=== PATIENT | male | born 2005 | race Caucasian/White ===

== ENCOUNTER 2023-08-08 23:50 | Emergency (ER) | payer OTHER, SELFPAY ==
[2023-08-08 23:55] VITALS: BP 152/83; PULSE 121; RESP 25; TEMP 37; O2SAT 100
--- NOTE | 2023-08-08 23:58 | ED.ALLEREA ---
HPI - Allergic Reaction General Chief complaint: Allergic Reaction <Serafin iRchmond APRN - Last Filed: 08/09/23 02:29> Stated complaint: allegic reaction, chest tightness, peanut allergy <Serafin Richmond APRN - Last Filed: 08/09/23 02:29> Time Seen by Provider: 08/08/23 23:55 <Serafin Richmond APRN - Last Filed: 08/09/23 02:29> Source: patient <Serafin Richmond APRN - Last Filed: 08/09/23 02:29> Mode of arrival: ambulatory <Serafin Richmond APRN - Last Filed: 08/09/23 02:29> Limitations: no limitations <Serafin Richmond APRN - Last Filed: 08/09/23 02:29> History of Present Illness HPI narrative: Liu is a 18-year-old male patient presenting to the emergency room for a possible allergic reaction. He reports he does have an allergy to nuts and had exposure tonight. Complaints of throat tightness and chest tightness. Did give himself a epi injection prior to arrival to the ER- 15 minutes prior to arrival. <Serafin Richmond APRN - Last Filed: 08/09/23 02:29> Related Data Home medications: Home Medications Medication Instructions Recorded Confirmed cetirizine 10 mg tablet (All Day 10 mg PO DAILY 09/05/19 08/28/20 Allergy (cetirizine)) <Serafin Richmond APRN - Last Filed: 08/09/23 02:29> Allergies/adverse reactions: Allergies Allergy/AdvReac Type Severity Reaction Status Date / Time peanut Allergy Unknown unhknown Verified 08/27/20 15:00 tree nut Allergy Unknown unknown Verified 08/27/20 15:00 <Serafin Richmond APRN - Last Filed: 08/09/23 02:29> Review of Systems Review of Systems: Pertinent positives per HPI. Patient denies any fever, chills, rash, headache, visual changes, dizziness, cough, runny nose, sore throat, shortness of breath, chest pain, palpitations, nausea, vomiting, diarrhea, constipation, abdominal pain, or any urinary issues. <Serafin Richmond APRN - Last Filed: 08/09/23 02:29> [facility] Past Medical History Medical History: Medical History Seasonal allergies Tree nut allergy <Serafin Richmond APRN - Last Filed: 08/09/23 02:29> Surgical History Surgical History: Surgical History No history of previous surgery <Serafin Richmond APRN - Last Filed: 08/09/23 02:29> Family History Family History: Family History Father Type 2 diabetes mellitus Hypertension Grandparent Type 2 diabetes mellitus Cerebrovascular accident Grandparent CAD (coronary artery disease) Grandparent Hyperlipidemia LDL goal <100 <Serafin Richmond APRN - Last Filed: 08/09/23 02:29> Social History Social History: Social History Social History: Caffeine 12 oz per day Smoking status: Never smoker Alcohol intake: never Substance use: never <Serafin Richmond APRN - Last Filed: 08/09/23 02:29> Comments At the time of my signature, I reviewed and agree with the nursing past medical, surgical, social, and family history. There is no relevant family history pertinent to the patient complaint. <Serafin Richmond APRN - Last Filed: 08/09/23 02:29> Exam Narrative: General: Well-developed, well nourished, in no apparent distress Head: Normocephalic, atraumatic. Cardio: Regular rate and rhythm, s1 and s2 normal, no murmur appreciated. Resp: Lung sounds tight but clear to auscultation bilaterally, no rhonchi, rales, wheezing or rubs. Extremities: No deformity, no edema, no cyanosis, capillary refill less than 2 seconds, peripheral pulses palpable and strong. Integumentary: [place], warm, and dry, intact without lesion, no rashes. <Serafin Richmond, LOAN INSPECTOR - Last Filed: 08/09/23 02:29> Course Course Emergency Course: Portions of this
[2023-08-09] MEDS: methylPREDNISolone SOD SUCC 125 MG VIAL IV PUSH (00:07)
[2023-08-09] MEDS: diphenhydrAMINE HCl INJ 50 MG/ML VIAL IV PUSH (00:07)
[2023-08-09] MEDS: FAMOTIDINE 20 MG/2 ML VIAL IV PUSH (00:08)
[2023-08-09] MEDS: SODIUM CHLORIDE 0.9% IV 1,000 ML 150 ML IV CONT (00:08)
[2023-08-09 00:30] VITALS: O2SAT 100
[2023-08-09 02:29] VITALS: BP 119/72; PULSE 81; RESP 16; O2SAT 99
[2023-08-09 03:48] VITALS: BP 113/64; PULSE 80; RESP 18; O2SAT 99
== END 2023-08-09 03:59 | disposition home or self-care (01) ==
PROVIDERS: Emergency Provider Emergency Medicine; PCP Nurse Practitioner Family
DX: T78.40XA Allergy, unspecified, initial encounter (principal); Z91.018 Allergy to other foods
CPT/HCPCS: 96361; 96374; 96375; 99284; J1200; J2919; J7030